=== PATIENT | female | born 1995 | race Caucasian/White ===

== ENCOUNTER 2022-10-31 09:56 | Outpatient (CLI) | payer OTHER, SELFPAY ==
[2022-11-07 16:01] LABS: Gliadin AB, IgG <1.0 U/mL (<15.0); TTG IGA AB <1.0 U/mL (<15.0)
== END 2022-10-31 09:57 | disposition home or self-care (01) ==
PROVIDERS: PCP Family Medicine; Visit Provider Nurse Practitioner
DX: R07.9 Chest pain, unspecified (principal); R10.13 Epigastric pain; R68.81 Early satiety; R11.0 Nausea
CPT/HCPCS: 36415; 86255; 86364

== ENCOUNTER 2022-11-30 00:07 | Day surgery (SDC) | payer OTHER, SELFPAY ==
--- NOTE | 2022-11-29 12:15 | P.PNAN_ITS ---
Anes - Initial Pre Proc Eval Procedure: Operation Date: 11/30/22 12:30 Proposed Procedures p Esophagogastroduodenoscopy - Bayron Hamlin MD Date/Time: 11/29/22 12:15 Surgeon: Bayron Hamlin MD Pre Op Diagnosis: nausea,epigastric pain,chest pain unspecified, Patient Data Age: 27 Gender: F Height: 1.57 m Weight: Allergies Allergy/AdvReac Type Severity Reaction Status Date / Time No Known Allergies Allergy Verified 11/30/22 11:25 Home Medications Medication Instructions Recorded Confirmed Type omeprazole 20 mg capsule,delayed 20 mg PO DAILY #30 caps 10/31/22 11/20/22 Rx release Patient hx anesthesia problems: none Family hx anesthesia problems: none Results Review: All pre-operative results and documents have been reviewed as part of the pre- operative evaluation. [facility] Past Medical History Medical History Chest pain Early satiety Epigastric pain Family history of Gilbert's disease Gastrointestinal discomfort Nausea Palpitations Weight loss Family History Family History Mother Asthma Social History Social History Years smoked: 6 Smoking status: Current every day smoker Tobacco type: e-cigarettes/vaping Alcohol intake: current Alcohol use details: occasional Substance use: never Living arrangements: with family Occupation/Education: occupation Gender identity (if verbalized by the patient): Female Spiritual care concerns: No Anes - Eval Final PreProcedure Day of Procedure 11/29/22 12:15 Patient weight: normal Heart: regular rate and rhythm Lungs: clear to auscultation and normal air movement Airway: Mallampati scale class II Neurological: alert and oriented Last oral intake: >/= 8 hours ASA classification: II Emergent: no Anesthetic plan: proceed Anesthesia type and monitoring: general GIVS and standard monitoring Results Review: All pre-operative results and documents have been reviewed as part of the pre-operative evaluation. Informed Consent: The patient's anesthetic plan and its attendant risks and benefits were discussed with the patient/family/POA. Questions were solicited and answers provided to the satisfaction of the patient/family/POA.
--- NOTE | 2022-11-29 19:55 | PM.HPGS ---
History of Present Illness History of Present Illness Consent: Risks, benefits, and alternatives have been discussed and questions answered. Patient agrees to proceed with procedure. Chief complaint: nausea,epigastric pain,chest pain unspecified, Narrative: Aleyda Jerez is a 27 year old female with intermittent burning epigastric pain 4 yrs. She reports decreased appetite, early satiety and nausea with no vomiting.?Known to have gallstones Review of Systems Review of Systems: All systems reviewed & are unremarkable except as noted in HPI and below PMFSH Past Medical History Medical History Chest pain Early satiety Epigastric pain Family history of Gilbert's disease Gastrointestinal discomfort Nausea Palpitations Weight loss Family History Family History Mother Asthma Social History Social History Years smoked: 6 Smoking status: Current every day smoker Tobacco type: e-cigarettes/vaping Alcohol intake: current Alcohol use details: occasional Substance use: never Living arrangements: with family Occupation/Education: occupation Gender identity (if verbalized by the patient): Female Spiritual care concerns: No Meds Home Medications and Allergies Home Medications Medication Instructions Recorded Confirmed Type omeprazole 20 mg capsule,delayed 20 mg PO DAILY #30 caps 10/31/22 11/20/22 Rx release Allergies Allergy/AdvReac Type Severity Reaction Status Date / Time No Known Allergies Allergy Verified 11/30/22 11:25 Exam Const: General: alert Orientation/consciousness: patient oriented x3 Resp: Auscultation: clear to auscultation bilaterally Cardio: Rhythm: regular rhythm GI: GI Palp: Yes Soft to palpation and No Tenderness to palpation present (GI) Neuro: General: patient oriented x3 Assessment and Plan Assessment and plan (1) Epigastric pain: Code(s): R10.13 - Epigastric pain Status: Acute Assessment and Plan: EGD with possible biopsy or dilatation or cautery.
[2022-11-30 11:25] VITALS: BP 112/85; PULSE 78; RESP 20; TEMP 36.5; O2SAT 100; BMI 17.2
[2022-11-30] MEDS: LACTATED RINGERS 1,000 ML 150 ML IV CONT (11:39)
[2022-11-30 12:44] VITALS: BP 104/64; PULSE 74; RESP 21; O2SAT 100
[2022-11-30 12:54] VITALS: BP 107/73; PULSE 66; RESP 20; O2SAT 100
[2022-11-30 13:04] VITALS: BP 113/74; PULSE 60; RESP 17; O2SAT 100
== END 2022-11-30 13:11 | disposition home or self-care (01) ==
PROVIDERS: PCP Family Medicine; Visit Provider Internal Medicine Gastroenterology
PROC: 0DJ08ZZ Inspection of Upper Intestinal Tract, Via Natural or Artificial Opening Endoscopic (ICD-10-PCS; CPT 43235; principal; 2022-11-30 12:30)
DX: K21.9 Gastro-esophageal reflux disease without esophagitis (principal); F17.290 Nicotine dependence, other tobacco product, uncomplicated
CPT/HCPCS: 43239; 87081; 88305; J2001; J2704; J7120